=== PATIENT | male | born 1980 | race Caucasian/White ===

== ENCOUNTER 2016-10-07 22:39 | Emergency (ER) | payer BC ==
[2016-10-07 23:05] VITALS: BP 140/78; PULSE 106; TEMP 98.5; BMI 43.0
[2016-10-08] MEDS ORDERED: IBUPROFEN 400 MG TABLET (FP) PO ONE ×2 (00:45→01:18)
--- NOTE | 2016-10-08 00:45 | PDOC ---
History of Present Illness - General History Source: Patient Exam Limitations: No Limitations - History of Present Illness Initial Comments: 10/08/16 00:52 The patient is a 36 year old male with no significant past medical history who presents to the ED for pain and swelling to the right third, fourth, and fifth digit prior to arrival. Patient reports he punched the wall with his right fist and sustained pain and swelling to the right third, fourth, and fifth digit. Patient is right hand dominant. The patient denies fever, chills, cough, SOB, chest pain, and palpitations. The patient denies abdominal pain, nausea, vomiting, and diarrhea. Allergies: NKDA Social History: Current smoker (ppd). No alcohol or drug use reported. Past Surgical History: None reported PCP: Dr. Chun Kay <Lorna Pavon - Last Filed: 10/08/16 00:52> - General History Source: Patient <OctavioAndrews gregory - Last Filed: 10/08/16 02:17> - General Chief Complaint: Injury Stated Complaint: INJURY Time Seen by Provider: 10/08/16 00:44 Past History <Lorna Pavon - Last Filed: 10/08/16 00:52> - Past Medical History Other medical history: Denies - Immunization History Immunization Up to Date: Yes - Psycho/Social/Smoking Cessation Hx Anxiety: No Suicidal Ideation: No Smoking Status: Yes Smoking History: Current every day smoker Have you smoked in the past 12 months: No Number of Cigarettes Smoked Daily: 20 Information on smoking cessation initiated: No Hx Alcohol Use: No Drug/Substance Use Hx: No Substance Use Type: None <Andrews España - Last Filed: 10/08/16 02:17> - Past Medical History Allergies/Adverse Reactions: Allergies Allergy/AdvReac Type Severity Reaction Status Date / Time No Known Allergies Allergy Verified 03/08/16 14:18 Home Medications: Ambulatory Orders Doxycycline Hyclate [Vibratab -] 100 mg PO BID #14 tablet 03/19/14 Amox-Tr/K Cl [Augmentin - 875Mg Tablet] 1 tab PO BID #20 tablet 03/07/16 Ibuprofen 800 mg PO TID #20 tablet 10/08/16 Oxycodone HCl/Acetaminophen [Percocet 5-325 mg Tablet] 1 tab PO Q6H #10 tablet MDD 5 10/08/16 Review of Systems - Review of Systems Able to Perform ROS?: Yes Comments:: 10/08/16 00:52 CONSTITUTIONAL: Absent: fever, no chills, no fatigue EYES: Absent: visual changes ENT: Absent: ear pain, no sore throat CARDIOVASCULAR: Absent: chest pain, no palpitations RESPIRATORY: Absent: cough, no SOB GI: Absent: abdominal pain, no nausea, no vomiting, no constipation, no diarrhea GENITOURINARY: Absent: dysuria, no frequency, no hematuria MUSCULOSKELETAL: +pain and swelling to the right third, fourth, and fifth digit Absent: back pain , no myalgia SKIN: Absent: rash NEURO: Absent: headache <Lorna Pavon - Last Filed: 10/08/16 00:52> *Physical Exam - Vital Signs Last Vital Signs Temp Pulse Resp BP Pulse Ox 98.5 F 106 H 16 140/78 96 10/07/16 23:00 10/07/16 23:00 10/07/16 23:00 10/07/16 23:00 10/07/16 23:00 - Physical Exam Comments: 10/08/16 00:52 GENERAL: Well-appearing, well-nourished. No apparent distress. HEENT: Normocephalic, atraumatic. PERRL, EOM intact. CARDIOVASCULAR: Normal S1, S2. Regular rate and rhythm. PULMONARY: Clear to auscultation bilaterally. ABDOMEN: Soft, non-distended, non-tender. EXTREMITIES: Decreased ROM of the right hand secondary to pain. Pain on flexion and extension of the third, fourth, and fifth digit at the MCP joint. No bony deformity. No snuffbox tenderness. Tenderness and soft tissue swelling at the third, fourth, and fifth digit at the MCP joint. SKIN: Warm, dry. No rash NEUROLOGICAL: No focal neurological deficits. <Lorna Pavon - Last Filed: 10/08/16 00:52> - Vital Signs Last Vital Signs Temp Pulse Resp BP Pulse Ox 98.5 F 106 H 16 140/78 96 10/07/16 23:00 10/07/16 23:00 10/07/16 23:00 10/07/16 23:00 10/07/16 23:00 <Andrews España - Last Filed: 10/08/16 02:17> Medical Decision Making - Medical Decision Making 10/08/16 02:16 Dr. España: The scribe's documentation has been prepared under my direction and personally reviewed by me in its entirery. I confirm that the note above accurately reflects all work, treatment, procedures, and medical decision making performed by me. <Andrews España - Last Filed: 10/08/16 02:17> *DC/Admit/Observation/Transfer - Attestations Scribe Attestion: 10/08/16 00:53 Documentation prepared by Lorna Pavon, acting as medical coding instructor for Andrews España MD/DO. <Lorna Pavon - Last Filed: 10/08/16 00:52> - Discharge Dispostion Admit: No <Andrews España - Last Filed: 10/08/16 02:17> Diagnosis at time of Disposition: Boxers fracture Qualifiers: Encounter type: initial encounter Fracture type: closed Qualified Code(s): S62.309A - Unspecified fracture of unspecified metacarpal bone, initial encounter for closed fracture - Discharge Dispostion Disposition: HOME Condition at time of disposition: Stable - Referrals Referrals: Chun Kay MD [Primary Care Provider] - Jan Bustillo MD [Staff Physician] - - Patient Instructions Printed Discharge Instructions: DI for a Hand Fracture - Post Discharge Activity Work/School Note: Back to Work
== END 2016-10-08 02:29 | disposition home or self-care (01) ==
LOC: JER 22:39
DX: S62.366A Nondisplaced fracture of neck of fifth metacarpal bone, right hand, initial encounter for closed fracture (principal); W22.8XXA Striking against or struck by other objects, initial encounter; Y93.89 Activity, other specified; Y92.89 Other specified places as the place of occurrence of the external cause
CPT/HCPCS: 73110-TC-RT; 73130-TC-RT; 99281-25